=== PATIENT | male | born 1960 | race Caucasian/White ===

== ENCOUNTER 2016-09-09 20:27 | Emergency (ER) | payer BC, OTHER ==
[~2016-09-09] VITALS: Ht 172.7 cm; Wt 54.5 kg
[2016-09-09 20:30] VITALS: BP 155/86; TEMP 98.2
[2016-09-09 21:50] VITALS: PULSE 68
== END 2016-09-09 22:05 | disposition home or self-care (01) ==
LOC: COL.ER 20:27
DX: T52.8X1A Toxic effect of other organic solvents, accidental (unintentional), initial encounter (principal); T25.522A Corrosion of first degree of left foot, initial encounter; Y92.89 Other specified places as the place of occurrence of the external cause

== ENCOUNTER 2016-09-15 15:28 | Outpatient (RCR) | payer OTHER | END 2016-11-26 15:54 | LOC: WSOH 15:28 | DX: T65.91XA Toxic effect of unspecified substance, accidental (unintentional), initial encounter (principal); T25.422A Corrosion of unspecified degree of left foot, initial encounter; Y99.0 Civilian activity done for income or pay ==

== ENCOUNTER 2017-01-11 10:30 | Outpatient (RCR) | payer BC | END 2017-01-11 14:19 | LOC: MKS.ESL.PT 10:30 | DX: M25.511 Pain in right shoulder (principal); M25.311 Other instability, right shoulder ==

== ENCOUNTER 2018-12-28 11:00 | Outpatient (RCR) | payer BC | END 2019-03-04 | disposition home or self-care (01) | LOC: MKS.ESL.PT | DX: M25.511 Pain in right shoulder (principal) ==

== ENCOUNTER 2021-08-15 12:25 | Emergency (ER) | payer BC ==
[~2021-08-15] VITALS: Ht 175.3 cm; Wt 55.9 kg
[2021-08-15 12:50] VITALS: BP 145/75; TEMP 98
[2021-08-15 14:25] VITALS: PULSE 75
== END 2021-08-15 14:25 | disposition home or self-care (01) ==
LOC: COL.ER 12:25
DX: S80.12XA Contusion of left lower leg, initial encounter (principal); Z29.14 Encounter for prophylactic rabies immune globulin; W54.0XXA Bitten by dog, initial encounter

== ENCOUNTER 2021-08-28 10:00 | Outpatient (RCR) | payer BC ==
[2021-08-22 10:32] VITALS: BP 118/75; PULSE 54; TEMP 97.9
[~2021-08-28] VITALS: Ht 175.3 cm; Wt 55.9 kg
[2021-08-28 10:17] VITALS: BP 142/86; PULSE 71; TEMP 98.6
== END 2021-08-28 10:40 | disposition home or self-care (01) ==
LOC: EUO
DX: Z20.3 Contact with and (suspected) exposure to rabies (principal); Z23 Encounter for immunization; W54.0XXA Bitten by dog, initial encounter